=== PATIENT | female | born 1990 | race Caucasian/White ===

== ENCOUNTER 2023-07-02 23:00 | Observation (INO) | payer OTHER, SELFPAY ==
--- NOTE | ~2023-07-02 | CT_ITS ---
CT of the Abdomen and Pelvis: Indication: Abdominal pain Technique: 2.5 mm axial scans were obtained through the abdomen and pelvis following intravenous adm inistration of 100 cc of Omnipaque 350. Dose reduction technique was used on this scan by utilizing a utomated exposure control and iterative reconstruction technique. The dose-length product (DLP) was 6 33.34 mGy-cm. Findings: Scans through the lung bases are unremarkable. The liver, spleen, pancreas, gallbladder, adrenals and kidneys are within normal limits. No evidence of aortic aneurysm. No lymphadenopathy. No bowel obstruction or bowel wall thickening. Appendix is dilated to 8 mm with perivenous inflammato ry stranding. No abscess or free air. Images through the pelvis were performed. Urinary bladder unremarkable. IUD in place. No adnexal mass seen. No ascites. Impression: Probable early acute appendicitis, as detailed above. No abscess or free air. IUD in place. Reviewed, dictated and finalized at [facility]. USION TEACHER Impression: Probable early acute appendicitis, as detailed above. No abscess or free air. IUD in place.
[2023-07-02 23:01] VITALS: BP 140/78; PULSE 76; RESP 20; TEMP 36.2; O2SAT 99
[2023-07-02 23:12] LABS: Basophils Absolute Auto 0.1 K/mm3 (0.0-0.1); Basophils Percent Auto 0.5 % (0.2-1.2); Eosinophils Absolute Auto 0.2 K/mm3 (0-0.3); Eosinophils Percent Auto 1.1 % (0-4.4); Hematocrit 45.2 % (37.0-47.0); Hemoglobin 15.2 g/dL (12.0-15.0); Immature Granulocyte Absolute 0.04 K/mm3 (0.00-0.031); Immature Granulocyte Percent A 0.3 % (0-0.5); Lymphocytes Absolute Auto 3.07 K/mm3 (0.9-3.2); Lymphocytes Percent Auto 20.2 % (18.3-44.2); Mean Corpuscular HGB Conc 33.6 g/dl (32-36); Mean Corpuscular Hemoglobin 30.6 pg (26-34); Mean Corpuscular Volume 90.9 fl (80-100); Mean Platelet Volume 9.9 fl (7.4-10.4); Monocytes Percent Auto 6.3 % (2.6-8.5); Neutrophils Absolute Auto 10.9 K/mm3 (1.3-6.7); Neutrophils Percent Auto 71.6 % (45.5-73.1); Platelet Count Result 306 k/mm3 (150-375); Red Blood Count 4.97 M/mm3 (4.2-5.4); White Blood Count 15.2 K/mm3 (4.5-10.0)
[2023-07-02 23:27] VITALS: BP 130/66; PULSE 74; RESP 16; TEMP 36.7; O2SAT 98
[2023-07-02 23:43] LABS: Appearance Urine Clear (Clear); Bacteria Urine 1+ /hpf; Bilirubin Urine Negative (Negative); Color Urine Yellow (Yellow); Glucose Urine UA Negative (Negative); Ketones Urine Negative (Negative); Leukocyte Esterase Ur Negative LEU/UL (Negative); Nitrate Urine Negative (Negative); Non Pathogenic Casts 0-2; Protein Urine Negative (Negative); RBC Urine 0-2 /hpf (0-2); Specific Grav Ur 1.021 (1.001-1.035); Squamous Epithelial Cell Urine Moderate /hpf (Few); Urobilinogen Urine 0.2 mg/dL (<2.0)
[2023-07-02 23:46] LABS: Add Urine Microscopic? YES
[2023-07-03] VITALS (14 sets, daily range): BP systolic 118–155; BP diastolic 64–93; PULSE 59–82; RESP 15–20; TEMP 36.1–37.2; O2SAT 94–100; BMI 29.9
--- NOTE | 2023-07-03 00:17 | ED.ABDPAIN ---
HPI - Abdominal Pain General Chief Complaint: Abdominal Pain Stated Complaint: abd pain Time Seen by Provider: 07/02/23 23:41 Source: patient Mode of arrival: ambulatory Limitations: no limitations History of Present Illness HPI narrative: 32 yo female who presents with RLQ abdominal pain Starting today While at work. no palliating or provoking factors. Has not taken any medications. She had been having nausea as well as nonbloody emesis but not currently nauseated. Also having chills. She has had chronic diarrhea for a few years has never been evaluated. She has not seen Gastroenterology. She does have a history of hemorrhoids occasion as bloody stool but none recently. No hematuria, urinary urgency, frequency, or dysuria. Her last bowel movement was 5 hours ago and watery. Recently finished her most recent menses, last date on Thursday. Related Data Allergies Allergy/AdvReac Type Severity Reaction Status Date / Time No Known Allergies Allergy Unverified 11/08/13 07:40 [facility] Past Medical History Medical History (Updated 07/03/23 @ 07:52 by Yaritza Wolfe MD) Adhesion of abdominal wall Hemorrhoids History of demise, not currently miscarriage due to hematoma at placenta, 20 week gestational age loss Surgical History Surgical History (Updated 07/03/23 @ 07:49 by Yaritza Wolfe MD) History of section x2, Dr Mcmahon History of laparoscopy x2 (for adhesions) Exam Narrative: GENERAL: Well-appearing, well-nourished, and in no acute distress. HEAD: Normocephalic, atraumatic. EYES: Non injected, non icteric ENT: Nares clear, no rhinorrhea or epistaxis. NECK: Supple. CHEST: Speaking in complete sentences No respiratory distress. HEART: Regular rate and rhythm. ABDOMEN: Soft, nondistended. TTP in RLQ and RUQ without rigidity. Rainey sign negative. EXTREMITIES: Normal range of motion. No edema. SKIN: Warm, dry, no rash. NEURO: No focal deficits. Alert and oriented. PSYCH: Normal mood and affect. Course Vital Signs Vital signs: Vital Signs Temperature 97.2 F L 07/02/23 23:01 Pulse Rate 76 07/02/23 23:01 Respiratory Rate 20 07/02/23 23:01 Blood Pressure 140/78 07/02/23 23:01 Pulse Oximetry 99 07/02/23 23:01 Oxygen Delivery Room Air 07/02/23 23:01 Temperature 98.0 F 07/02/23 23:27 Pulse Rate 62 07/03/23 07:14 Respiratory Rate 17 07/03/23 07:14 Blood Pressure 118/72 07/03/23 07:14 Pulse Oximetry 98 07/03/23 07:14 Oxygen Delivery Room Air 07/02/23 23:01 MDM - Abdominal Pain MDM Narrative Medical decision making narrative: Patient presents with RLQ abdominal pain and and nausea and vomiting (though N/V has since resolved). Chronic watery diarrhea. In the emergency department she is afebrile with vital signs within normal limits. She does have significant TTP in RLQ and RUQ so will proceed with CT abd/pelvis and give analgesic medications. Acute appendicitis on CT. Patient notified. Patient discussed with On-call general surgeon Dr. Gerard. Zosyn antibiotics initiated and patient made NPO. Patient admitted under Dr Gerard in stable condition. Differential Diagnosis Differential diagnosis: Likely abdominal pain, acute appendicitis, constipation, diverticulitis, gastroenteritis, pancreatitis, small bowel obstruction and other (biliary pathology) Lab Data Attestation: I reviewed the patient's lab results. Lab results narrative: mild hyponatremia. patient has leukocytosis as well as elevated hemoglobin though with hematocrit within normal limits. 07/02/23 23:08 07/03/23 00:07 Labs: Lab Results 07/02/23 07/02/23 07/03/23 Range/Units 23:08 23:28 00:07 WBC 15.2 H (4.5-10.0) K/mm3 RBC 4.97 (4.2-5.4) M/mm3 Hgb 15.2 H (12.0-15.0) g/dL Hct 45.2 (37.0-47.0) % MCV 90.9 (80-100) fl MCH 30.6 (26-34) pg MCHC 33.6 (32-36) g/dl
[2023-07-03 00:32] LABS: Alanine Aminotransferase 12 U/L (6-35); Albumin Level 3.7 g/dL (3.5-5.1); Alkaline Phosphatase 70 U/L (38-126); Anion Gap 1 mmol/L (8-16); Aspartate Amino Transferase 25 U/L (14-36); Bilirubin,Total 0.5 mg/dL (0.2-1.3); Blood Urea Nitrogen 10 mg/dL (7-17); Calcium 9.2 mg/dL (8.4-10.2); Carbon Dioxide 29 mmol/L (22-30); Chloride 106 mmol/L (98-107); Estimated CRCL calculation 120 ml/min; Estimated Glomerular Filt Rate > 60; Glucose 101 mg/dL (65-110); Lipase 44 U/L (23-300); Potassium 3.9 mmol/L (3.4-5.0); Sodium 136 mmol/L (137-145)
[2023-07-03] MEDS: MORPHINE SULFATE (*CRX) 4 MG/ML INJ IV PUSH (01:18)
[2023-07-03 02:01] LABS: Influenza A QL RT-PCR Negative (Negative); Influenza B QL RT-PCR Negative (Negative); SARS-CoV-2 RNA PCR Negative (Negative)
[2023-07-03] MEDS: PIPERACILLIN/TAZ 4.5G/NS 100ML 4.5 GM/100 ML BAG IVPB (05:49)
[2023-07-03] MEDS: LACTATED RINGERS 1,000 ML 125 ML IV CONT (05:49)
--- NOTE | 2023-07-03 07:18 | PC.NURSE ---
Assumed care of patient resting in NAD. Pt calm and friendly. VS as documented. Awaiting further POC/admission. Call light in reach.
--- NOTE | 2023-07-03 09:24 | ADMGEN ---
This patient, Mickie Arriola, was admitted to 2 Medical Room 261-01. Patient/family oriented to hospital policies and general routines including ID bracelet, bed and alarms, visiting hours, pain management, procedures, bathroom and other care routines, personal items, smoking policy, room service/diet, and visiting hours. Information on how to activate the Rapid Response Team has been discussed. Patient/Family are encouraged to report perceived risks to care and to ask questions if they do not understand what they are told or what they should do.
--- NOTE | 2023-07-03 13:03 | WPDANESEPPF ---
Anes - Initial Pre Proc Eval Procedure: Operation Date: 07/03/23 15:00 Proposed Procedures p Laparoscopic Appendectomy - Darron Gerard DO Date/Time: 07/03/23 13:03 Surgeon: Lamont Lucio MD Pre Op Diagnosis: Acute Appenicitis Patient Data Age: 32 Gender: F Height: 1.65 m Weight: 81.8 kg Last Vital Signs Temp 36.3 C L 07/03/23 09:28 Pulse 64 07/03/23 09:28 Resp 18 07/03/23 09:28 BP 118/68 07/03/23 09:28 Pulse Ox 97 07/03/23 09:28 O2 Del Method Room Air 07/02/23 23:01 Allergies Allergy/AdvReac Type Severity Reaction Status Date / Time No Known Allergies Allergy Unverified 07/03/23 09:50 Home Medications Medication Instructions Recorded Confirmed Type albuterol sulfate 90 mcg/actuation 2 puff inhalation Q6H PRN 07/03/23 07/03/23 History aerosol inhaler Shortness Of Breath buspirone 10 mg tablet 20 mg PO DAILY 07/03/23 07/03/23 History lamotrigine 100 mg tablet 100 mg PO DAILY 07/03/23 07/03/23 History sertraline 50 mg tablet (Zoloft) 50 mg PO DAILY 07/03/23 07/03/23 History trazodone 100 mg tablet 100 mg PO HS 07/03/23 07/03/23 History Laboratory Tests 07/02/23 07/02/23 07/03/23 23:08 23:28 00:07 WBC 15.2 H K/mm3 (4.5-10.0) RBC 4.97 M/mm3 (4.2-5.4) Hgb 15.2 H g/dL (12.0-15.0) Hct 45.2 % (37.0-47.0) MCV 90.9 fl (80-100) MCH 30.6 pg (26-34) MCHC 33.6 g/dl (32-36) RDW 12.0 % (11.5-14.5) Plt Count 306 k/mm3 (150-375) MPV 9.9 fl (7.4-10.4) Immature Gran % (Auto) 0.3 % (0-0.5) Neut % (Auto) 71.6 % (45.5-73.1) Lymph % (Auto) 20.2 % (18.3-44.2) [place] % (Auto) 6.3 % (2.6-8.5) Eos % (Auto) 1.1 % (0-4.4) Baso % (Auto) 0.5 % (0.2-1.2) Lymph # (Auto) 3.07 K/mm3 (0.9-3.2) [place] # (Auto) 1.0 H K/mm3 (0.1-0.6) Eos # (Auto) 0.2 K/mm3 (0-0.3) Baso # (Auto) 0.1 K/mm3 (0.0-0.1) Abs Immat Gran (auto) 0.04 H K/mm3 (0.00-0.031) Absolute Neuts (auto) 10.9 H K/mm3 (1.3-6.7) Absolute Nucleated RBC 0.0 K/mm3 (0.0-0.012) Nucleated RBC % 0.0 % (0.0-0.2) Sodium 136 L mmol/L (137-145) Potassium 3.9 mmol/L (3.4-5.0) Chloride 106 mmol/L (98-107) Carbon Dioxide 29 mmol/L (22-30) Anion Gap 1 L mmol/L (8-16) BUN 10 mg/dL (7-17) Creatinine 0.60 L mg/dL (0.7-1.0) Estim Creat Clear Calc 120 ml/min Estimated GFR > 60 (59 - ) Glucose 101 mg/dL (65-110) Calcium 9.2 mg/dL (8.4-10.2) Total Bilirubin 0.5 mg/dL (0.2-1.3) AST 25 U/L (14-36) ALT 12 U/L (6-35) Alkaline Phosphatase 70 U/L (38-126) Total Protein 7.0 g/dL (6.3-8.2) Albumin 3.7 g/dL (3.5-5.1) Lipase 44 U/L (23-300) Urine Color Yellow (Yellow) Urine Appearance Clear (Clear) Urine pH 6.0 (5.0-9.0) Ur Specific [place] 1.021 (1.001-1.035) Urine Protein Negative mg/dL (Negative) Urine Glucose (UA) Negative mg/dL (Negative) Urine Ketones Negative mg/dL (Negative) Ur Blood (Man) Non-hemolyzed trace (Negative) Urine Nitrate Negative (Negative) Urine Bilirubin Negative (Negative) Urine Urobilinogen 0.2 mg/dL (<2.0) Leukocyte Esterase Rfl Negative ABILIO/UL (Negative) Urine RBC 0-2 /hpf (0-2) Urine WBC 6-10 H /hpf Ur Squamous Epith Cells Moderate /hpf (Few) Urine Bacteria 1+ H /hpf Urine Casts 0-2 Influenza A (RT-PCR) Influenza B (RT-PCR) SARS-CoV-2 RNA (RT-PCR) 07/03/23 01:20 WBC RBC Hgb Hct
--- NOTE | 2023-07-03 13:13 | PM.IMHP ---
H&P: HPI History of Present Illness Date/Time: 07/03/23 13:13 Chief Complaint: Right lower quadrant pain Narrative: This is a 32-year-old woman who presents with right lower quadrant pain that started about 1 day ago. She began having vague periumbilical abdominal pain that then localized the right lower quadrant. She has been experiencing nausea as well. She did feel feverish yesterday but denies any fevers since coming into the hospital. In the emergency department she was noted to have an elevated white blood count and CT showed evidence of acute appendicitis. She was started on Zosyn and admitted for further treatment. Review of Systems Review of Systems: All systems reviewed & are unremarkable except as noted in HPI and below Constitutional: Constitutional: Denies chills, Denies fever(s), Denies headache(s) and Denies weight loss Eyes: Eyes: Denies change in vision ENT: Denies dizziness, Denies headache(s), Denies neck mass and Denies throat swelling Cardiovascular: Cardiovascular: Denies chest pain, Denies lightheadedness and Denies dyspnea Respiratory: Respiratory: Denies cough, Denies dyspnea and Denies wheezing Gastrointestinal: Gastrointestinal: Denies abdominal pain, Denies change in bowel habits, Denies nausea and Denies vomiting Genitourinary: Genitourinary: Denies hematuria and Denies dysuria Musculoskeletal: Musculoskeletal: Reports as per HPI Integumentary/Breasts: Skin/Breast: Reports as per HPI Neurologic: Denies dizziness and Denies headache(s) Allergic/Immunologic: Allergic/Immunologic: Denies throat swelling and Denies wheezing PMF Past Medical History Medical History Adhesion of abdominal wall Hemorrhoids History of demise, not currently miscarriage due to hematoma at placenta, 20 week gestational age loss Surgical History Surgical History History of section x2, Dr Mcmahon History of laparoscopy x2 (for adhesions) Social History Social History Smoking packs per day: 1 Smoking cigarettes per day: 20.0 Years smoked: 16 Smoking pack-years: 16.00 Smoking status: Current every day smoker Tobacco type: e-cigarettes/vaping Second hand tobacco smoke exposure: Yes Smoking end date: 07/26/22 Alcohol intake: never Substance use: current Substance use type: marijuana Last use: t-1 Do You Feel Safe in your Home?: Yes Lack of Transportation: No Lack of Food: Never True Current Housing: I Have Housing Concerned About Future Housing: No Difficulty Paying Gas/Electric Bills: No Difficulty Paying for Meds: No Currently Unemployed: No Education: High School Diploma/GED Difficulty w/ Childcare or Family Care: No Spiritual care concerns: No Meds Home Medications and Allergies Home Medications Medication Instructions Recorded Confirmed Type albuterol sulfate 90 mcg/actuation 2 puff inhalation Q6H PRN 07/03/23 07/03/23 History aerosol inhaler Shortness Of Breath buspirone 10 mg tablet 20 mg PO DAILY 07/03/23 07/03/23 History lamotrigine 100 mg tablet 100 mg PO DAILY 07/03/23 07/03/23 History sertraline 50 mg tablet (Zoloft) 50 mg PO DAILY 07/03/23 07/03/23 History trazodone 100 mg tablet 100 mg PO HS 07/03/23 07/03/23 History Allergies Allergy/AdvReac Type Severity Reaction Status Date / Time No Known Allergies Allergy Unverified 07/03/23 09:50 Vital Signs Vital Signs - 24 hr 07/02/23 23:01 07/02/23 23:27 07/03/23 01:18 Temperature 36.2 C L 36.7 C Pulse Rate 76 74 80 Respiratory Rate 20 16 15 Blood Pressure 140/78 130/66 147/78 H Pulse Oximetry 99 98 99 Oxygen Delivery Room Air 07/03/23 03:25 07/03/23 05:51 07/03/23 07:13 Temperature Pulse Rate 62 62 Respiratory Rate 15 15 Blood Pressure 144/64 H 120/76
--- NOTE | 2023-07-03 13:15 | WPDHPUPDATE1 ---
History and Physical Update Update Date/Time: 07/03/23 13:15 History and Physical has been reviewed, including an updated exam of the patient. There are NO changes in the patient's condition. Risks, benefits, and alternatives have been discussed and questions answered. Patient agrees to proceed with procedure.
[2023-07-03] MEDS: LACTATED RINGERS 1,000 ML 30 ML IV CONT ×2 (13:32→14:47)
[2023-07-03] MEDS: PIPERACILLN/TAZ 3.375GM/NS50ML 3.375 GM/50 ML BAG IVPB (14:05)
[2023-07-03] MEDS: BUPIVACAINE/EPINEPHRINE 0.5% 10 ML VIAL 30 ML INFILTRATE (14:07)
--- NOTE | 2023-07-03 14:41 | W.PM.PROC2 ---
Procedure Note - Detailed Date of Procedure 07/03/23 Pre-op Diagnosis Acute Appenicitis Post-op Diagnosis Same Procedure Performed Laparoscopic appendectomy Surgeon Darron Gerard, DO Anesthesia General and Local (0.5% bupivicaine with epinephrine) Indications This is a 32-year-old woman who presented to the emergency department overnight with right lower quadrant pain that started yesterday morning. Her pain progressed throughout the day and was becoming intolerable. In the emergency department she was noted to have an elevated white blood count and CT showed evidence of acute appendicitis. She was admitted for observation and placed on IV antibiotics. Discussions were made with the patient about treatment options and decision was made to proceed with laparoscopic appendectomy, possible open. Findings Laparoscopic appendectomy was performed. The appendix appeared dilated and indurated, but there was no sign of perforation or abscess. Base of the appendix appeared healthy and viable. No other intra-abdominal abnormalities were noted. The appendix was removed sent to lab for pathology. Description of Procedure Procedure as well as risks, benefits, and alternatives were explained to the patient. The patient agreed to proceed. Written consent was obtained and placed in chart prior to procedure. The patient was brought back to surgical suite. She was placed supine on operating table. Time-out was done to confirm the patient and procedure. The patient was then intubated by the Anesthesia Department. Her abdomen was prepped and draped in sterile fashion using chlorhexidine prep. A 5 mm incision was made just to the left of the patient's umbilicus and a 5 mm Optiview trocar was advanced through the abdominal layers under direct visualization. Once inside the peritoneal cavity, carbon dioxide insufflation was used to create a pneumoperitoneum. The camera was inserted and the abdomen was inspected. No immediate abnormalities were identified. The patient was then placed in slight Trendelenburg position and rotated to the left. A 5 mm incision was made in the suprapubic region in midline and a 5 mm trocar was inserted under direct visualization. A 12 mm incision was made in the left lower quadrant and a 12 mm trocar was inserted under direct visualization. The right lower quadrant was carefully inspected. The cecum was identified and then this was traced back to the appendix. The appendix was identified and grasped at the mesoappendix and lifted anteriorly. Careful blunt dissection was carried out at the base of the appendix through the mesoappendix using a [place] grasper. An Endo-SANDRA 45 mm blue load stapler was then advanced across the base of the appendix and clamped and fired. A white reload was then clamped across the mesoappendix and fired. This freed up our appendix completely. It was then placed in an EndoCatch bag and removed through the left lower quadrant port. The staple lines were then inspected. Hemostasis appeared adequate and the staple lines appeared secure. The area was then irrigated with sterile saline. The pelvis was then carefully inspected and irrigated with sterile saline as well and the remainder of the abdomen was carefully inspected. The patient was then flattened out in bed. One final inspection was made around the abdominal cavity and no other abnormalities were seen. The left lower quadrant port was removed and a Ricardo-Mago cone was used to approximate the fascia with an 0 Vicryl simple interrupted suture. The remaining ports were then removed under direct visualization. The camera was removed and the pneumoperitoneum was released. 0.5% bupivacaine with epinephrine was infiltrated locally around each of the incisions. The skin of the incisions was then approximated using 4-0 Monocryl subcuticular suture and Exofin glue was applied on top. The patient was then awakened from anesthesia, extubated, and transfer
--- NOTE | 2023-07-03 14:49 | PM.DS ---
DS: Admitting Diagnosis Discharge Date 07/03/2023 Admitting Diagnosis Acute appendicitis DS: Discharge Diagnosis Discharge Diagnosis (1) Acute appendicitis: Qualifiers: Acute appendicitis type: with localized peritonitis Appendicitis abscess presence: without abscess Appendicitis gangrene presence: without gangrene Appendicitis perforation presence: without perforation Qualified Code(s): K35.30 - Acute appendicitis with localized peritonitis, without perforation or gangrene Code(s): K35.80 - Unspecified acute appendicitis Status: Acute DS: Summary Hospital Course Reason for hospitalization: Acute appendicitis Hospital Course: This is a 32-year-old woman who presented to the emergency department overnight with right lower quadrant abdominal pain. She was noted to have an elevated white blood count and CT showed evidence of acute appendicitis. She was started on IV Zosyn and placed in observation for further treatment. She underwent laparoscopic appendectomy on 07/03. Surgery was uncomplicated and she was returned to the surgical floor postoperatively. Her diet and activity were advanced as tolerated. She was discharged home once her pain was adequately controlled, she was tolerating her diet, vitals remained stable, and she was ambulating halls. Time spent discussing smoking cessation with patient: 3 to 10 minutes Status at Discharge Functional status at discharge: independent ambulation Overall status at discharge: patient is progressing back to baseline Time Spent with Patient Time attestation: Total time spent providing and/or coordinating discharge services: Time spent: Less than 30 minutes Exam Const: General: comfortable and no acute distress GI: Inspection: non-distended and incision (Intact with glue) DS: Data Data Completed and Pending Pending studies at discharge: Pending at discharge 07/03/23 14:03 Surgical [PTH] Routine Labs on day of discharge: Labs from last 24 hours 07/03/23 07/03/23 07/02/23 01:20 00:07 23:28 WBC RBC Hgb Hct MCV MCH MCHC RDW Plt Count MPV Immature Gran % (Auto) Neut % (Auto) Lymph % (Auto) [place] % (Auto) Eos % (Auto) Baso % (Auto) Lymph # (Auto) [place] # (Auto) Eos # (Auto) Baso # (Auto) Abs Immat Gran (auto) Absolute Neuts (auto) Absolute Nucleated RBC Nucleated RBC % Sodium 136 L Potassium 3.9 Chloride 106 Carbon Dioxide 29 Anion Gap 1 L BUN 10 Creatinine 0.60 L Estim Creat Clear Calc 120 Estimated GFR > 60 Glucose 101 Calcium 9.2 Total Bilirubin 0.5 AST 25 ALT 12 Alkaline Phosphatase 70 Total Protein 7.0 Albumin 3.7 Lipase 44 Urine Color Yellow Urine Appearance Clear Urine pH 6.0 Ur Specific [place] 1.021 Urine Protein Negative Urine Glucose (UA) Negative Urine Ketones Negative Ur Blood (Man) Non-hemolyzed trace Urine Nitrate Negative Urine Bilirubin Negative Urine Urobilinogen 0.2 Leukocyte Esterase Rfl Negative Urine RBC 0-2 Urine WBC 6-10 H Ur Squamous Epith Cells Moderate Urine Bacteria 1+ H Urine Casts 0-2 Influenza A (RT-PCR) Negative Influenza B (RT-PCR) Negative SARS-CoV-2 RNA (RT-PCR) Negative 07/02/23 23:08 WBC 15.2 H RBC 4.97 Hgb 15.2 H Hct 45.2 MCV 90.9 MCH 30.6 MCHC 33.6 RDW 12.0 Plt Count 306 MPV 9.9 Immature Gran % (Auto) 0.3 Neut % (Auto) 71.6 Lymph % (Auto) 20.2 [place] % (Auto) 6.3 Eos % (Auto) 1.1 Baso % (Auto) 0.5 Lymph # (Auto) 3.07 [place] # (Auto) 1.0 H Eos # (Auto) 0.2 Baso # (Auto) 0.1 Abs Immat Gran (auto) 0.04 H Absolute Neuts (auto) 10.9 H Absolute Nucleated RBC 0.0 Nucleated RBC % 0.0 Sodium Potassium Chloride Carbon Dioxide Anion Gap BUN Creatinine Estim Creat Clear Calc Estimated GFR Glucose Calcium Total Bilirubin AST ALT [place]
[2023-07-03] MEDS: ONDANSETRON INJ 4 MG/2 ML VIAL IV PUSH (15:15)
[2023-07-03] MEDS: fentaNYL CITRATE INJ (*CRX) 100 MCG/2 ML VIAL 25 MCG IV PUSH ×4 (15:30→15:39)
[2023-07-03] MEDS: HYDROcodone/acetaminophen (*CRX) 7.5-325 MG TABLET 1 TAB PO (16:12)
--- NOTE | 2023-07-03 16:22 | PC.NURSE ---
patient returned to floor from PACU, 2 episodes of vomiting bright red blood upon return to floor; notified provider, Dr. Gerard at 1620.
== END 2023-07-03 18:45 | disposition home or self-care (01) ==
LOC: ANHED 07-03 05:27 → ANH3MEDSUR 07-03 07:58 → ANH2MED 07-03 09:46 → ANH3MEDSUR 07-06 07:41
PROVIDERS: Admitting Provider Surgery; Emergency Provider Student in an Organized Health Care Education/Training Program; PCP Internal Medicine; Visit Provider Surgery
PROC: 0DTJ4ZZ Resection of Appendix, Percutaneous Endoscopic Approach (ICD-10-PCS; CPT 44970; principal; 2023-07-03 15:00)
DX: K35.80 Unspecified acute appendicitis (principal); E87.1 Hypo-osmolality and hyponatremia; N83.02 Follicular cyst of left ovary; Z97.5 Presence of (intrauterine) contraceptive device; Z20.822 Contact with and (suspected) exposure to COVID-19; F17.290 Nicotine dependence, other tobacco product, uncomplicated; F12.90 Cannabis use, unspecified, uncomplicated; Z79.51 Long term (current) use of inhaled steroids; Z79.899 Other long term (current) drug therapy
CPT/HCPCS: 44970; 36415; 74177; 80053; 81001; 81025; 83690; 85025; 87086; 87636; 88304; 96365; 96375; 99285; A9270; G0379; J1100; J2250; J2270; J2405; J2543; J2704; J3010; J7030; J7120; Q9967

== ENCOUNTER 2025-02-06 09:35 | Outpatient (CLI) | payer OTHER, SELFPAY ==
--- OUTSIDE RECORDS SUMMARY | 2003-05-27 06:45 | XMS_ITS | Continuity of Care Document ---
Author Organization [facility] Address [address] [place] [address] utive [facility] [address] [place] [address] Phone Care Team Providers Care Merchandising Professor Name Role Phone Araujo OD, Saleem Unavailable Unavailable Advance Directives Directive Yes / No Effective Date File Name No Information Encounters Encounter Description Practice Location Reason(s) For Visit Diagnoses Date Provider Providers Copied on Encounter [facility], [address] [place] [address] [address], [place], [place], [id number], [place] tel:[phone] [facility] No Information 7-200 4 Araujo OD Saleem. [address] [facility] [address] , [address], [place], [address], [place]. tel:[phone] Family History Family Member Type Diagnosis Age At Onset No Information Payers Payer name Insurance type Covered republican ID Authoriza tion(s) No Information Social History Type Description Quantity Date Captured Comments Sex Female Smoking Status No Information Chief Complaint And Reason For Visit No Information Reason For Referral Reason For Referral No Information History Of Present Illness Encounter Date Complaint History Of Prese nt Illness No Information Functional Status Date Functional Assessmen t No Information Instructions Date Instruction Additional Infor mation No Information Assessments Type Assessment Date No Information Patient Care Teams Name Effective Dates (start - stop) Status Members No Information
--- NOTE | ~2025-02-06 | MR_ITS ---
EXAMINATION: MR lumbar spine wo con DATE: 02/06/2025 10:22 INDICATION: Low back pain. TECHNIQUE: Magnetic resonance imaging (MRI) of the lumbar spine was performed without intravenous contrast. Sequences included sagittal T2-weighted FSE, sagittal T2-weighted FS FSE, sagittal T1-weighted FSE, and axial T2-weighted FSE. COMPARISON: None FINDINGS: There is 6 degrees levocurvature of thoracolumbar spine. Vertebral body heights are normal. There is mildly decreased disc height at L4-L5. The distal spinal cord signal intensity is normal. The conus medullaris is at L1. The following disc levels are specifically discussed: L1-L2: The disc does not extend beyond the endplate margin. There is mild bilateral facet joint osteoarthritis. There is no neural foraminal stenosis. There is no central canal stenosis. L2-L3: The disc does not extend beyond the endplate margin. There is mild bilateral facet joint osteoarthritis. There is no neural foraminal stenosis. There is no central canal stenosis. L3-L4: The disc does not extend beyond the endplate margin. There is moderate right and mild left facet joint osteoarthritis. There is no neural foraminal stenosis. There is no central canal stenosis. L4-L5: There is a left central extrusion. There is severe bilateral facet joint osteoarthritis. There is mild left neural foraminal stenosis. There is mild central canal stenosis. There is moderate stenosis of left lateral recess. L5-S1: There is a central protrusion. There is severe right and moderate left facet joint osteoarthritis. There is no neural foraminal stenosis. There is mild central canal stenosis. IMPRESSION: 1. Moderate spondylosis at L4-L5 and mild spondylosis at other levels. Reviewed, dictated and finalized at location E.
--- OUTSIDE RECORDS SUMMARY | 2025-02-06 10:03 | XMS_ITS | Data Portability ---
Author Organization [facility] Address [address] [place] [address] Care Team Providers Care Ocean Lifeguard Name Role Phone JUAN ERICKSON Primary Care Provider BRIANA Cristobal Cell Operation Supervisor Assessment Encounter Date Assessment Date Assessment LastModified by Organization Details LastModified Time 01/15/2024 01/15/2024 dermatology. MRI lumbar spine with chronicity of the symptoms has been gone on for 6-8 months at this level of pain but off and on for years she is getting horns follow up with me we will be for regular problems in 6 months but she will call the day after MRI she has had therapy in the past with no relief [email or web address] Not available 04/15/2024 21:38:00 04/11/2024 04/11/2024 her viral syndromes doing fine she occasionally uses some albuterol she may wheeze from time to time from smoking we will refill that. 2. Provided quitting tobacco care instructions. 3. Healthy lifestyle care instructions. Keep her regular appointment she has a work note to return for April 12, 2024 ill effects of tobacco discussed included but not limited to increased tumor of aerodigestive tract and other organ systems increase incidence of heart attack stroke and cancer that can lead to sudden or chronic medical illness Not available 05/12/2024 17:50:50 07/15/2024 07/15/2024 blood urine physical therapy see me in 3 months but she will let me know after therapies completed there management of her how she is doing. I congratulated her on her smoking cessation [email or web address] Not available 07/16/2024 12:29:08 12/07/2024 12/07/2024 Renal ultrasound because of the persistent low back pain also MRI of the lower back see me in a month quitting tobacco care instructions healthy lifestyle care instructions [email or web address] Not available 12/07/2024 23:24:49 01/04/2025 01/04/2025 Opportunities for healthy lifestyle care instructions and quitting tobacco care instructions awaiting her MRI of her back renal ultrasound was normal follow up 4 months still using nonsteroidals in the interim [email or web address] Not available 01/04/2025 23:49:40 Plan of Treatment Reminders Order Date Submit Date Provider Last Modified By Organization Details Last Modified Time Details Appointments ANY 15 2024 10:15A M Juan Erickson MD Not available Not available Not available Lab urinalysi s, complete 2024 025 [facility], [address] [place] [address], [address], [place], [address], 07/16/2024 09:16:03 CMP, serum or plasma 2024 025 [facility], [facility] [facility], [address], [place], [address], 07/16/2024 09:16:01 lipid panel, serum 2024 025 [facility], [facility] [facility], [address], [place], [address], 07/16/2024 09:15:59 CBC w/ auto diff 2024 025 [facility], [address] [facility], [address], [place], [address], 07/16/2024 09:16:04 Referral physical therapist referral 2024 025 [facility], [address] [facility], [place], [address], 07/25/2024 15:22:39 dermatolo gist referral 2023 024 junior Oconnell MD (Dermatology) , [address] [facility] [address], [address], [place], [address], 11/22/2024 09:16:55 Procedures None recorded. Surgeries None recorded. Imaging MRI, lumbar spine, w/o contrast 2024 025 [facility], [address], [place], [address], 01/19/2025 15:13:35 US, renal 2024 025 [facility] ([facility]), [address] [place], [address], 12/15/2024 10:22:31 MRI, lumbar spine, w/o contrast 2023 024 [facility] (Radiology), [address] [place], [address], 02/12/2024 11:45:35 Medication Orders Airsupra 90 mcg-80 mcg/actua tion HFA aerosol inhaler [address] [facility], [address] [place] [address], [address], 01/04/2025 13:22:40 ibuprofen 800 mg tablet [address] [facility], [address] [place] [address], [address], 01/04/2025 13:22:40 albuterol sulfate HFA 90 mcg/actua tion aerosol inhaler 2024 025 [facility], [address] [place] [address], [address], 01/04/2025 12:37:32 albuterol sulfate HFA 90 mcg/actua tion aerosol inhaler 2023 024 [facility], [address] [facility], [place], [address], 01/04/2025 12:37:32 Patient TargetsNo targets recorded. Patient Instructions Encounter Date Encounter Id Patient Instructions Last Modified By Organization Details Last Modified Time 04/11/2024 [id number] Quitting Tobacco : Care Instructions [email or web address] Not available 04/11/2024 17:24:20 A healthy lifestyle: care instructions Not available 04/11/2024 17:24:20 07/15/2024 [id number] A healthy lifestyle: care instructions [email or web address] Not available 07/15/2024 13:24:03 12/07/2024 [id number] Quitting Tobacco : Care Instructions [email or web address] Not available 12/07/2024 17:56:18 A healthy lifestyle: care instructions [email or web address] Not available 12/07/2024 17:56:18 01/04/2025 [id number] Quitting Tobacco : Care Instructions [email or web address] Not available 01/04/2025 13:22:40 A healthy lifestyle: care instructions [email or web address] Not available 01/04/2025 13:22:40 Reason for Referral Java Manager Referral for L esion of face Referring Physician: Juan Erickson, Internal Medicine, Encounter Date: 01/15/2024 Physical Therapist Referral for Low back pain Referring Physician: Juan Erickson, Internal Medicine, Encounter Date: 07/15/2024 Results Created Date Observation Date Name Description Value Unit Range Abnormal Flag Note LastModifiedBy Organization Detail LastModifiedTime 07/16/1907/16/2024 LIPID PANEL cholesterol, total 185 mg/dL 100-19 9 Not Available [facility] ([facility]) [address] [facility], [place], [address], 07/16/2024 09:15:59 07/16/1907/16/2024 LIPID PANEL triglyceride s 104 mg/dL 0-149 Not Available [facility] ([facility]) [address] [facility], [place], [address], 07/16/2024 09:15:59 07/16/19 25 07/16/2024 LIPID PANEL HDL cholesterol 37 mg/dL >39 below low normal Not Available [facility] ([facility]) [address] [place], [address], 07/16/2024 09:15:59 07/16/19 25 07/16/2024 LIPID PANEL VLDL cholesterol jorge 19 mg/dL 5-40 Not Available [facility] ([facility]) [address] [place], [address], 07/16/2024 09:15:59 07/16/19 25 07/16/2024 LIPID PANEL LDL chol calc ([facility]) 129 mg/dL 0-99 above high normal Not Available [facility] ([facility]) [address] [place], [address], 07/16/2024 09:15:59 07/16/19 25 07/16/2024 COMP. METAB OLIC PANEL (14) glucose 94 mg/dL 70-99 Not Available [facility] ([facility]) [address] [place], [address], 07/16/2024 09:16:01 07/16/19 25 07/16/2024 COMP. METAB OLIC PANEL (14) BUN 9 mg/dL 6-20 Not Available [facility] ([facility]) [address] [place], [address], 07/16/2024 09:16:01 07/16/19 25 07/16/2024 COMP. METAB OLIC PANEL (14) creatinine 0.77 mg/dL 0.57-1 .00 Not Available [facility] ([facility]) [address] [place], [address], 07/16/2024 09:16:01 07/16/19 25 07/16/2024 COMP. METAB OLIC PANEL (14) eGFR 103 mL/mi n/1.7 3 >59 Not Available [facility] ([facility]) [address] [facility], [place], [address], 07/16/2024 09:16:01 07/16/19 25 07/16/2024 COMP. METAB OLIC PANEL (14) BUN/creatini ne ratio 12 9-23 Not Available [facility] ([facility]) [address] [facility], [place], [address], 07/16/2024 09:16:01 07/16/19 25 07/16/2024 COMP. METAB OLIC PANEL (14) sodium 136 mmol/ L 134-14 4 Not Available [facility] ([facility]) [address] [facility] [place], [address], 07/16/2024 09:16:01 07/16/19 25 07/16/2024 COMP. METAB OLIC PANEL (14) potassium 4.6 mmol/ L 3.5-5. 2 Not Available [facility] ([facility]) [address] [facility], [place], [address], 07/16/2024 09:16:01 07/16/19 25 07/16/2024 COMP. METAB OLIC PANEL (14) chloride 104 mmol/ L 96-106 Not Available [facility] ([facility]) [address] [facility] [place], [address], 07/16/2024 09:16:01 07/16/19 25 07/16/2024 COMP. METAB OLIC PANEL (14) carbon dioxide, total 21 mmol/ L 20-29 Not Available [facility] ([facility]) [address] [facility], [place], [address], 07/16/2024 09:16:01 07/16/19 25 07/16/2024 COMP. METAB OLIC PANEL (14) calcium 9.2 mg/dL 8.7-10 .2 Not Available [facility] ([facility]) [address] [facility] [place], [address], 07/16/2024 09:16:01 07/16/19 25 07/16/2024 COMP. METAB OLIC PANEL (14) protein, total 6.9 g/dL 6.0-8. 5 Not Available [facility] ([facility]) [address] [facility] [place], [address], 07/16/2024 09:16:01 07/16/19 25 07/16/2024 COMP. METAB OLIC PANEL (14) albumin 4.2 g/dL 3.9-4. 9 Not Available [facility] ([facility]) [address] [facility] [place], [address], 07/16/2024 09:16:01 07/16/19 25 07/16/2024 COMP. METAB OLIC PANEL (14) globulin, total 2.7 g/dL 1.5-4. 5 Not Available [facility] ([facility]) [address] [facility] [place], [address], 07/16/2024 09:16:01 07/16/19 25 07/16/2024 COMP. METAB OLIC PANEL (14) bilirubin, total 0.2 mg/dL 0.0-1. 2 Not Available [facility] ([facility]) [address] [facility] [place], [address], 07/16/2024 09:16:01 07/16/19 25 07/16/2024 COMP. METAB OLIC PANEL (14) alkaline phosphatase 100 IU/L 44-121 Not Available [facility] ([facility]) [address] [facility] [place], [address], 07/16/2024 09:16:01 07/16/19 25 07/16/2024 COMP. METAB OLIC PANEL (14) AST (SGOT) 12 IU/L 0-40 Not Available [facility] ([facility]) [address] [facility] [place], [address], 07/16/2024 09:16:01 07/16/19 25 07/16/2024 COMP. METAB OLIC PANEL (14) ALT (SGPT) 12 IU/L 0-32 Not Available [facility] ([facility]) [address] [facility], [place], [address], 07/16/2024 09:16:01 07/16/19 25 07/16/2024 MICRO SCOPI C EXAMI NATIO N WBC None seen /hpf 0-5 Not Available [facility] ([facility]) [address] [facility], [place], [address], 07/16/2024 09:16:02 07/16/19 25 07/16/2024 MICRO SCOPI C EXAMI NATIO N RBC None seen /hpf 0-2 Not Available [facility] ([facility]) [address] [facility], [place], [address], 07/16/2024 09:16:02 07/16/19 25 07/16/2024 MICRO SCOPI C EXAMI NATIO N epithelial cells (non renal) >10 /hpf 0-10 abnormal Not Available [facility] ([facility]) [address] [facility], [place], [address], 07/16/2024 09:16:02 07/16/19 25 07/16/2024 MICRO SCOPI C EXAMI NATIO N casts None seen /lpf nonese en Not Available [facility] ([facility]) [address] [facility], [place], [address], 07/16/2024 09:16:02 07/16/19 25 07/16/2024 MICRO SCOPI C EXAMI NATIO N mucus threads Presen t notest ab. Not Available [facility] ([facility]) [address] [facility], [place], [address], 07/16/2024 09:16:02 07/16/19 25 07/16/2024 MICRO SCOPI C EXAMI NATIO N bacteria Modera te nonese en/few abnormal Not Available [facility] ([facility]) [address] [facility], [place], [address], 07/16/2024 09:16:02 07/16/19 25 07/16/2024 URINA LYSIS , COMPL ETE specific gravity 1.026 1.005- 1.030 Not Available [facility] ([facility]) [address] [facility], [place], [address], 07/16/2024 09:16:03 07/16/19 25 07/16/2024 URINA LYSIS , COMPL ETE pH 5.5 5.0-7. 5 Not Available [facility] ([facility]) [address] [facility], [place], [address], 07/16/2024 09:16:03 07/16/19 25 07/16/2024 URINA LYSIS , COMPL ETE urine-color YELLOW yellow Not Available [facility] ([facility]) [address] [place], [address], 07/16/2024 09:16:03 07/16/19 25 07/16/2024 URINA LYSIS , COMPL ETE appearance CLOUDY clear abnormal Not Available [facility] ([facility]) [address] [facility], [place], [address], 07/16/2024 09:16:03 07/16/19 25 07/16/2024 URINA LYSIS , COMPL ETE WBC esterase TRACE negati ve abnormal Not Available [facility] ([facility]) [address] [place], [address], 07/16/2024 09:16:03 07/16/19 25 07/16/2024 URINA LYSIS , COMPL ETE protein NEGATI VE negati ve/tra ce Not Available [facility] ([facility]) [address] [place], [address], 07/16/2024 09:16:03 07/16/19 25 07/16/2024 URINA LYSIS , COMPL ETE glucose NEGATI VE negati ve Not Available [facility] ([facility]) [address] [place], [address], 07/16/2024 09:16:03 07/16/19 25 07/16/2024 URINA LYSIS , COMPL ETE ketones NEGATI VE negati ve Not Available [facility] ([facility]) [address] [place], [address], 07/16/2024 09:16:03 07/16/19 25 07/16/2024 URINA LYSIS , COMPL ETE occult blood NEGATI VE negati ve Not Available [facility] ([facility]) [address] [place], [address], 07/16/2024 09:16:03 07/16/19 25 07/16/2024 URINA LYSIS , COMPL ETE bilirubin NEGATI VE negati ve Not Available [facility] ([facility]) [address] [place], [address], 07/16/2024 09:16:03 07/16/19 25 07/16/2024 URINA LYSIS , COMPL ETE urobilinogen ,semi-qn 0.2 mg/dL 0.2-1. 0 Not Available [facility] ([facility]) [address] [place], [address], 07/16/2024 09:16:03 07/16/19 25 07/16/2024 URINA LYSIS , COMPL ETE nitrite, urine NEGATI VE negati ve Not Available [facility] ([facility]) [address] [place], [address], 07/16/2024 09:16:03 07/16/19 25 07/16/2024 URINA LYSIS , COMPL ETE microscopic examination SEE BELOW: Micro scopi c was indic ated and was perfo rmed. Not Available [facility] ([facility]) [address] [place], [address], 07/16/2024 09:16:03 07/16/19 25 07/16/2024 CBC WITH DIFFE RENTI AL/PL ATELE T WBC 5.7 x10e3 /uL 3.4-10 .8 Not Available [facility] ([facility]) [address] [facility], [place], [address], 07/16/2024 09:16:04 07/16/19 25 07/16/2024 CBC WITH DIFFE RENTI AL/PL ATELE T RBC 4.99 x10e6 /uL 3.77-5 .28 Not Available [facility] ([facility]) [address] [place], [address], 07/16/2024 09:16:04 07/16/1907/16/2024 CBC WITH DIFFE RENTI AL/PL ATELE T hemoglobin 15.3 g/dL 11.1-1 5.9 Not Available [facility] ([facility]) [address] [facility], [place], [address], 07/16/2024 09:16:04 07/16/1907/16/2024 CBC WITH DIFFE RENTI AL/PL ATELE T hematocrit 45.2 % 34.0-4 6.6 Not Available [facility] ([facility]) [address] [place], [address], 07/16/2024 09:16:04 07/16/1907/16/2024 CBC WITH DIFFE RENTI AL/PL ATELE T MCV 91 fL 79-97 Not Available [facility] ([facility]) [address] [place], [address], 07/16/2024 09:16:04 07/16/19 25 07/16/2024 CBC WITH DIFFE RENTI AL/PL ATELE T MCH 30.7 pg 26.6-3 3.0 Not Available [facility] ([facility]) [address] [place], [address], 07/16/2024 09:16:04 07/16/19 25 07/16/2024 CBC WITH DIFFE RENTI AL/PL ATELE T MCHC 33.8 g/dL 31.5-3 5.7 Not Available [facility] ([facility]) [address] [facility], [place], [address], 07/16/2024 09:16:04 07/16/19 25 07/16/2024 CBC WITH DIFFE RENTI AL/PL ATELE T RDW 12.6 % 11.7-1 5.4 Not Available [facility] ([facility]) [address] [facility], [place], [address], 07/16/2024 09:16:04 07/16/19 25 07/16/2024 CBC WITH DIFFE RENTI AL/PL ATELE T platelets 310 x10e3 /uL 150-45 0 Not Available [facility] ([facility]) [address] [facility], [place], [address], 07/16/2024 09:16:04 07/16/19 25 07/16/2024 CBC WITH DIFFE RENTI AL/PL ATELE T neutrophils 52 % notest ab. Not Available [facility] ([facility]) [address] [facility], [place], [address], 07/16/2024 09:16:04 07/16/1907/16/2024 CBC WITH DIFFE RENTI AL/PL ATELE T lymphs 33 % notest ab. Not Available [facility] ([facility]) [address] [facility], [place], [address], 07/16/2024 09:16:04 07/16/19 25 07/16/2024 CBC WITH DIFFE RENTI AL/PL ATELE T monocytes 10 % notest ab. Not Available [facility] ([facility]) [address] [facility], [place], [address], 07/16/2024 09:16:04 07/16/19 25 07/16/2024 CBC WITH DIFFE RENTI AL/PL ATELE T eos 4 % notest ab. Not Available [facility] ([facility]) [address] [place], [address], 07/16/2024 09:16:04 07/16/19 25 07/16/2024 CBC WITH DIFFE RENTI AL/PL ATELE T basos 1 % notest ab. Not Available [facility] ([facility]) [address] [facility], [place], [address], 07/16/2024 09:16:04 07/16/1907/16/2024 CBC WITH DIFFE RENTI AL/PL ATELE T neutrophils (absolute) 3.0 x10e3 /uL 1.4-7. 0 Not Available [facility] ([facility]) [address] [place], [address], 07/16/2024 09:16:04 07/16/1907/16/2024 CBC WITH DIFFE RENTI AL/PL ATELE T lymphs (absolute) 1.9 x10e3 /uL 0.7-3. 1 Not Available [facility] ([facility]) [address] [place], [address], 07/16/2024 09:16:04 07/16/1907/16/2024 CBC WITH DIFFE RENTI AL/PL ATELE T monocytes(ab solute) 0.6 x10e3 /uL 0.1-0. 9 Not Available [facility] ([facility]) [address] [place], [address], 07/16/2024 09:16:04 07/16/1907/16/2024 CBC WITH DIFFE RENTI AL/PL ATELE T eos (absolute) 0.2 x10e3 /uL 0.0-0. 4 Not Available [facility] ([facility]) [address] [place], [address], 07/16/2024 09:16:04 07/16/19 25 07/16/2024 CBC WITH DIFFE RENTI AL/PL ATELE T baso (absolute) 0.1 x10e3 /uL 0.0-0. 2 Not Available [facility] ([facility]) [address] [facility], [place], [address], 07/16/2024 09:16:04 07/16/1907/16/2024 CBC WITH DIFFE RENTI AL/PL ATELE T immature granulocytes 0 % notest ab. Not Available [facility] ([facility]) [address] [facility], [place], [address], 07/16/2024 09:16:04 07/16/1907/16/2024 CBC WITH DIFFE RENTI AL/PL ATELE T immature grans (abs) 0.0 x10e3 /uL 0.0-0. 1 Not Available [facility] ([facility]) [address] [facility], [place], [address], 07/16/2024 09:16:04 12/16/1912/15/2024 US, renal No observ ation record ed. [facility] [address] [place], [address], 12/16/2024 16:35:19 Result Notes None recorded. Problems Name Problem SNOMED Code Status Onset Date Resolution Date Notes Provider Name and Address Organization Details Recorded Time Pain of right knee joint 7698918295088 00 Active 2023 PAR[place]A [place], [place] - [facility] 4 12:15:31 Injury of hand 018056856 Active 2023 [place] [facility] 4 12:15:32 Viral syndrome 210475042 Active 2023 [place] [facility] 4 17:10:22 Smoker 50072291 Active 2023 PAR[place] [facility] 4 17:10:23 Body mass index 30+ - obesity 337644063 Active 2023 Chas Pizarro MA julio cesar, [facility] 4 17:10:24 Low back pain 789226030 Active 2024 Chas Pizarro MA julio cesar, [facility] 5 11:13:56 Screening for cardiovascu lar system disease Active 2024 Chas Pizarro MA julio cesar, [facility] 5 11:13:57 Long-term drug therapy Active 2024 Chas Pizarro MA julio cesar, [facility] 5 11:13:57 Problem Notes None recorded. Procedures Surgical History Date Name Laterality Status Provider Name and Address Organization Details Recorded Time 7 Date of Last Pap Smear completed Starr Nelson MA [facility] 08/13/2016 11:28:32 1 Caesarean Section completed Starr Nelson MA [facility] 08/13/2016 11:35:57 1 Laparoscopy completed Starr Nelson MA [facility] 08/13/2016 11:37:40 9 Caesarean Section completed Starr Nelson MA [facility] 08/13/2016 11:35:48 8 Dilation and Curettage completed Starr Nelson MA [facility] 08/13/2016 11:36:09 Laparoscopy completed Starr Nelson MA [facility] 08/13/2016 11:37:17 Imaging Results None recorded. Procedure Notes None recorded. Medical Equipment None Reported. Allergies No known drug allergies Medications Name Sig Start Date Stop Date Status Note LastModified by Organization Details LastModified Time hydrocort isone 0.5 % topical cream 04/30 completed Not Available Not Available Not Available trazodone 50 mg tablet TAKE 1 TABLET BY MOUTH ONCE DAILY AT BEDTIME NEEDED active Not Available Not Available No t Available azithromy alok 250 mg tablet TAKE 2 TABLETS BY MOUTH ON DAY 1, AND THEN TAKE 1 TABLET BY MOUTH ONCE A DAY ON DAY 2 THROUGH DAY 5 07/16 completed Not Available Not Available Not Available ibuprofen 800 mg tablet TAKE 1 TABLET BY MOUTH THREE TIMES DAILY active Not Available Not Available No t Available hydrocodo ne 5 mg-acetam inophen 325 mg tablet TAKE 1 TABLET BY MOUTH EVERY 4 HOURS NEEDED FOR PAIN 07/16 completed Not Available Not Available Not Available prednison e 20 mg tablet 04/30 completed Not Available Not Available Not Available sertralin e 100 mg tablet TAKE 1 TABLET BY MOUTH ONCE DAILY active Not Available Not Available No t Available permethri n 5 % topical cream 04/30 completed Not Available Not Available Not Available metronida zole 500 mg tablet Take 1 tablet every 12 hours by oral route for 7 days. 07/16 completed Not Available Not Available Not Available ondansetr on 8 mg disintegr ating tablet 07/15 completed Not Available Not Available Not Available amoxicill in 875 mg tablet 07/16 completed Not Available Not Available Not Available trazodone 100 mg tablet TAKE 1 TABLET BY MOUTH ONCE DAILY AT BEDTIME NEEDED 07/15 completed Not Available Not Available Not Available buspirone 10 mg tablet TAKE 2 TABLETS BY MOUTH ONCE DAILY active Not Available Not Available No t Available hydroxyzi ne HCl 25 mg tablet 04/30 completed Not Available Not Available Not Available mirtazapi ne 15 mg tablet 04/30 completed Not Available Not Available Not Available methylpre dnisolone 4 mg tablets in a dose pack TAKE BY MOUTH DIRECTED ON INSIDE OF PACKAGE 07/16 completed Not Available Not Available Not Available albuterol sulfate HFA 90 mcg/actua tion aerosol inhaler INHALE 2 PUFFS BY MOUTH EVERY 4 HOURS 01/04 completed changed to Airsupra per Dr Erickson. Not Available Not Available Not Available Vitamin D2 1,250 mcg (50,000 unit) capsule 04/30 completed Not Available Not Available Not Available sertralin e 50 mg tablet TAKE 1 TABLET BY MOUTH ONCE DAILY 01/04 completed Not Available Not Available Not Available ParaGard T 380A 380 square mm intrauter ine device Take by intraute rine route. 07/16 completed Not Available Not Available Not Available lamotrigi ne 100 mg tablet TAKE 1 TABLET BY MOUTH ONCE DAILY active Not Available Not Available No t Available amoxicill in 875 mg-potass ium clavulana te 125 mg tablet TAKE 1 TABLET BY MOUTH TWICE DAILY 01/14 completed Not Available Not Available Not Available nitrofura ntoin monohydra te/macroc rystals 100 mg capsule TAKE 1 CAPSULE BY MOUTH TWICE DAILY FOR 5 DAYS 07/15 completed Not Available Not Available Not Available Airsupra 90 mcg-80 mcg/actua tion HFA aerosol inhaler INHALE 2 PUFFS NEEDED MAX 12 PUFFS IN 24 HOURS active Not Available Not Available No t Available Vitals Date Recorded Body height Body mass index (BMI) Body weight Heart rate Oxygen saturation Oxygen saturation in Arterial blood by Pulse oximetry Systolic And Diastolic Provider Name and Address Organization Details Last Updated DateTime 5 165.1 cm 30.7 kg/m2 72395.7 9 g 71 /min 98 % 98 % 122/82 mm[Hg] [facility] 5 10:32:10 Date Recorded Body height Body mass index (BMI) Body weight Heart rate Oxygen saturation Oxygen saturation in Arterial blood by Pulse oximetry Systolic And Diastolic Provider Name and Address Organization Details Last Updated DateTime 5 165.1 cm 31.2 kg/m2 74989.2 9 g 79 /min 98 % 98 % 114/74 mm[Hg] [facility] 5 14:43:47 Date Recorded Body height Body mass index (BMI) Body weight Heart rate Oxygen saturation Oxygen saturation in Arterial blood by Pulse oximetry Systolic And Diastolic Provider Name and Address Organization Details Last Updated DateTime 5 165.1 cm 31.2 kg/m2 19188.2 9 g 82 /min 97 % 97 % 108/76 mm[Hg] [facility] 5 11:56:59 Date Recorded Body height Body mass index (BMI) Body weight Heart rate Oxygen saturation Oxygen saturation in Arterial blood by Pulse oximetry Systolic And Diastolic Provider Name and Address Organization Details Last Updated DateTime 4 165.1 cm 32.1 kg/m2 53422.3 3 g 73 /min 100 % 100 % 120/82 mm[Hg] Starr Nelson MA [facility] 4 10:25:10 Date Recorded Body height Body mass index (BMI) Body weight Heart rate Oxygen saturation Oxygen saturation in Arterial blood by Pulse oximetry Systolic And Diastolic Provider Name and Address Organization Details Last Updated DateTime 4 165.1 cm 31.9 kg/m2 86787.6 6 g 82 /min 97 % 97 % 112/64 mm[Hg] Emiliana Becker MA [place] - [facility] 16:19:59 Social History Question Answer Notes LastModified by Organizat ion Details LastModified Time Tobacco Smoking Status Former Smoker Vilma Mulligan MA null, [place] - [facility] 07/17/2023 12:12:12 Do You Have An Advance Directive? No Information not available 08/13/2016 Are You Blind Or Do You Have Difficulty Seeing? No Information not available 07/17/2023 Is Blood Transfusion Acceptable In An Emergency? Yes [email or web address] Information not available 04/30/2018 What Is Your Level Of Caffeine Consumption? Heavy Information not available 08/13/2016 How Much Tobacco Do You Chew? None Information not available 08/13/2016 In The 14 Days Before Symptom Onset, Have You Had Close Contact With A Laboratory-confir med COVID-19 While That Case Was Ill? No Information not available 07/15/2024 In The 14 Days Before Symptom Onset, Have You Had Close Contact With A Person Who Is Under Investigation For COVID-19 While That Person Was Ill? No Information not available 07/15/2024 Have You Been To An Area Known To Be High Risk For COVID-19? No Information not available 07/15/2024 Are You Deaf Or Do You Have Serious Difficulty Hearing? No Information not available 07/17/2023 What Type Of Diet Are You Following? REGULAR Information not available 08/13/2016 Which Illicit Or Recreational Drugs Have You Used? Marijuana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
--- OUTSIDE RECORDS SUMMARY | 2025-02-06 10:04 | XMS_ITS | Patient Health Record ---
Author Organization [facility] Address [address] [place] [address] Care Team Providers Care Ct Technologist Name Role Phone Susu Perez Primary Care Provider Allergies No Known Allergies Reason For Referral No Information Medications Medication SIG (Take, Route, Fr equency, Duration) Notes Start Date End Date Status busPIRone HCl 10 MG 2 tablets Orally onc e a day; Duration: 30 days Active Zoloft 100 MG 1 tablet Orally Once a day; Duration: 30 days Active traZODone HCl 50 MG 1 tablet at bedtime as needed Orally Once a day; Duration: 30 days Active lamoTRIgine 100 MG 1 tablet Orally Once a day; Duration: 30 days Active Social History Tobacco Use: Social History Observation Description Date Details (start date - stop date) Current Smoker NA - NA Sex Assigned At : Social History Observation Description Sex Assigned At Female Dont use, Tobacco Use/Smoking Question Answer Notes Are you a Uses tobacco in other forms Tobacco Control (Standard) Question Answer Notes Tobacco use: Current smoker Additional Findings: Tobacco user e-cigarette Problems Problem Type SNOMED Code ICD Code Onset Dates Problem Status W/U Status Risk Notes Problem Depression (055376157) Depression (F32.9) Active confirmed Problem Generalized anxiety disorder (22696452) Anxiety, generalized (F41.1) Active confirmed Problem Cannabis dependence (44114830) Cannabis use disorder, severe, dependence (F12.20) Active confirmed Vital Signs Heart Rate 66 /min 04/05/2024 Respiratory Rate 16 /min 04/05/2024 Oximetry 97 % 04/05/2024 Blood pressure diastolic 88 mm Hg 04/05/2024 Height 65 inches in 12/28/2024 Blood pressure systolic 120 mm Hg 04/05/2024 Weight 188.4 lbs 04/05/2024 BMI 31.35 kg/m2 04/05/2024 Encounters Encounter Location Date Provider Diagnosis [facility] [address] [place] [address] 04/05/2024 Susu Chris Depression F32.9 ; Anxiety, generalized F41.1 and Cannabis use disorder, severe, dependence F12.[address] [place] [address] 07/14/2024 Susu Chris Depression F32.9 ; Anxiety, generalized F41.1 and Cannabis use disorder, severe, dependence F12.[address] [place] [address] 12/28/2024 Susu Chris Depression F32.9 ; Anxiety, generalized F41.1 and Cannabis use disorder, severe, dependence F12.[address] [place] [address] 03/30/2024 Susu Chris Anxiety, generalized F41.1 and Depression F32.[address] [address] 07/06/2024 Susunicolle Perez Depression F32.[address] [address] 12/21/2024 Susu Chris Anxiety, generalized F41.1 and Depression F32.9 Assessments Encounter Date Diagnosis (ICD Code) Assessment Notes Treatment Notes Treatment Clinical Notes Section Notes 03/30/2024 Anxiety, generalized (ICD-10 - F41.1) 04/05/2024 Depression (ICD-10 - F32.9) 07/06/2024 Depression (ICD-10 - F32.9) 07/14/2024 Depression (ICD-10 - F32.9) 12/21/2024 Anxiety, generalized (ICD-10 - F41.1) 12/28/2024 Depression (ICD-10 - F32.9) 12/28/2024 Anxiety, generalized (ICD-10 - F41.1) Increase Zoloft for Anxiety. Client has reported attempting to conceive with her fiance. Discussed medications in length. Discussed that no medication is 100% safe for mom and baby; encouraged to talk with OB further. Encouraged client to take PNV. Lamotrigine- serious rash could cause shedding of all skin and even become fatal. Stop taking medication immediately if a rash occurs and seek emergency care. Notify our office as well. If you ever miss 4 or more consecutive days of taking this medication, please let the office know. The prescriber may need to restart this medication at 25 mg daily and titrate up as tolerated. 03/30/2024 Depression (ICD-10 - F32.9) 12/21/2024 Depression (ICD-10 - F32.9) 07/14/2024 Anxiety, generalized (ICD-10 - F41.1) Client reports doing well with current regimen, mutual agreement to continue. Client states attempting to conceive with her fiance. Discussed medications in length. Discussed that no medication is 100% safe for mom and baby; encouraged to talk with OB further. Encouraged client to take PNV. Lamotrigine- serious rash could cause shedding of all skin and even become fatal. Stop taking medication immediately if a rash occurs and seek emergency care. Notify our office as well. If you ever miss 4 or more consecutive days of taking this medication, please let the office know. The prescriber may need to restart this medication at 25 mg daily and titrate up as tolerated. 04/05/2024 Anxiety, generalized (ICD-10 - F41.1) Client reports doing well with current regimen, mutual agreement to continue. 04/05/2024 Cannabis use disorder, severe, dependence (ICD-10 - F12.20) Discussed with patient that taking or using herbs, such as marijuana, and/or vitamins and supplements may interfere with or alter the way prescription medications work in the body or cause adverse reactions. Patient voiced understanding. 07/14/2024 Cannabis use disorder, severe, dependence (ICD-10 - F12.20) Discussed with patient that taking or using herbs, such as marijuana, and/or vitamins and supplements may interfere with or alter the way prescription medications work in the body or cause adverse reactions. Patient voiced understanding. 12/28/2024 Cannabis use disorder, severe, dependence (ICD-10 - F12.20) Discussed with patient that taking or using herbs, such as marijuana, and/or vitamins and supplements may interfere with or alter the way prescription medications work in the body or cause adverse reactions. Patient voiced understanding. 04/05/2024 Other Reasons, potential benefits, potential risks, interactions and side effects of all medications were discussed. The Patient/Guardian asked appropriate questions, appeared to understand the answers, and decided to accept the treatment and continue being followed. Alternatives and expected course without treatment were reviewed. The Patient/Guardian is aware of the need to contact the office or return for an earlier appointment if any problems or concerns arise. May also contact the 24-hour crisis hotline ([facility]), refer to the closest emergency room or call 911 if new symptoms arise of existing symptoms worsen. The Patient/Guardian is aware that this would apply to symptoms like: suicidal ideation, homicidal ideation, high risk behaviors, manic symptoms, psychotic symptoms, physical symptoms, or any other symptoms that may be dangerous to self or others. Greater than 50% of time spent on coordination and counseling where psychopharmacology as well as psychotherapeutic interventions were discussed along with review of treatments in the past. Education provided concerning need for adequate hydration. Patient/Guardian verbalized understanding of education, treatment plan and follow up. 07/14/2024 Other Reasons, potential benefits, potential risks, interactions and side effects of all medications were discussed. The Patient/Guardian asked appropriate questions, appeared to understand the answers, and decided to accept the treatment and continue being followed. Alternatives and expected course without treatment were reviewed. The Patient/Guardian is aware of the need to contact the office or return for an earlier appointment if any problems or concerns arise. May also contact the 24-hour crisis hotline ([facility]), refer to the closest emergency room or call 911 if new symptoms arise of existing symptoms worsen. The Patient/Guardian is aware that this would apply to symptoms like: suicidal ideation, homicidal ideation, high risk behaviors, manic symptoms, psychotic symptoms, physical symptoms, or any other symptoms that may be dangerous to self or others. Greater than 50% of time spent on coordination and counseling where psychopharmacology as well as psychotherapeutic interventions were discussed along with review of treatments in the past. Education provided concerning need for adequate hydration. Patient/Guardian verbalized understanding of education, treatment plan and follow up. This session was completed telephonically with client/parental/guard floresita consent: Unable to determine movement status, assess appearance, affect, AIMS, or vital signs. 12/28/2024 Other Reasons, potential benefits, potential risks, interactions and side effects of all medications were discussed. The Patient/Guardian asked appropriate questions, appeared to understand the answers, and decided to accept the treatment and continue being followed. Alternatives and expected course without treatment were reviewed. The Patient/Guardian is aware of the need to contact the office or return for an earlier appointment if any problems or concerns arise. May also contact the 24-hour crisis hotline ([facility]), refer to the closest emergency room or call 911 if new symptoms arise of existing symptoms worsen. The Patient/Guardian is aware that this would apply to symptoms like: suicidal ideation, homicidal ideation, high risk behaviors, manic symptoms, psychotic symptoms, physical symptoms, or any other symptoms that may be dangerous to self or others. Greater than 50% of time spent on coordination and counseling where psychopharmacology as well as psychotherapeutic interventions were discussed along with review of treatments in the past. Education provided concerning need for adequate hydration. Patient/Guardian verbalized understanding of education, treatment plan and follow up. This session was completed telephonically with client/parental/guard floresita consent: Unable to determine movement status, assess appearance, affect, AIMS, or vital signs. Plan Of Treatment No Information Insurance Providers Payer Name Payer Address Payer Phone Subscriber Number Group Number Insured Name Patient Relationship to Insured Coverage Start Date Coverage End Date [employer] [address] [place] [address] [id number] Mickie Arriola Self - patient is the insured 1 [employer] [address] [place] [address] [id number] Mickie Arriola Self - patient is the insured 1 Medical (General) History Surgical History Surgery Date(Month/Year) laproscopic x2 2011 x2 2010 cyst removed from back 2016 appendectomy spring 2023 Hospitalization History Reason Date(Month/Year) see surgeries
== END 2025-02-06 09:36 | disposition home or self-care (01) ==
PROVIDERS: PCP Internal Medicine; Visit Provider Internal Medicine
DX: M47.816 Spondylosis without myelopathy or radiculopathy, lumbar region (principal); M47.817 Spondylosis without myelopathy or radiculopathy, lumbosacral region
CPT/HCPCS: 72148